=== PATIENT | female | born 1985 | race Two or more races ===

== ENCOUNTER 2019-07-27 19:04 | Emergency (ER) | payer SELFPAY ==
[~2019-07-27] VITALS: Ht 149.9 cm; Wt 72.6 kg
[2019-07-27 19:16] VITALS: BP 153/86
[2019-07-27] MEDS ORDERED: ACETAMINOPHEN 500 MG TAB PO ONE (20:30)
[2019-07-27] MEDS ORDERED: IBUPROFEN 800 MG TAB PO ONE (20:30)
== END 2019-07-27 20:51 | disposition home or self-care (01) ==
LOC: ER 19:08
DX: S63.501A Unspecified sprain of right wrist, initial encounter (principal); W19.XXXA Unspecified fall, initial encounter; Y93.E8 Activity, other personal hygiene; Y99.9 Unspecified external cause status; Y92.89 Other specified places as the place of occurrence of the external cause
CPT/HCPCS: 73110

== ENCOUNTER 2023-08-05 11:02 | Observation (INO) | payer MEDICAID ==
[~2023-08-05] VITALS: Ht 149.9 cm; Wt 74.4 kg
[2023-08-05 11:44] LABS: Basophils # (auto) 0 10 ^3/uL (0-0.2); Basophils % (auto) 0.3 % (0.0-2.0); Eosinophils # (auto) 0.1 10 ^3/uL (0-0.8); Hemoglobin 10.6 g/dL (12.2-16.2); Lymphocytes # (auto) 2.4 10 ^3/uL (0.4-5.4); Monocytes # (auto) 0.6 10 ^3/uL (0-1.3); Red Cell Distribution Width 17.2 % (11.8-14.3)
[2023-08-05 11:46] LABS: Eosinophils % (auto) 0.6 % (0.0-7.0); Hematocrit 33.3 % (36.0-46.0); Lymphocytes % (auto) 20.6 % (10.0-50.0); Mean Corpuscular Hemoglobin 24.7 pg (28.0-32.0); Mean Corpuscular Volume 77.4 fL (80.0-100.0); Monocytes % (auto) 5.1 % (0.0-12.0); Neutrophils # (auto) 8.4 10 ^3/uL (1.6-8.6); Neutrophils % (auto) 73.4 % (37.0-80.0); Nucleated Red Blood Cells % 0.1 %; White Blood Cell 11.5 10^3/uL (4.4-10.8)
[2023-08-05 12:00] LABS: INR 0.92 (0.9-1.15); Partial Thromboplastin Time 27.1 SEC (24.5-34.5); Prothrombin Time 9.7 sec (9.3-11.8)
[2023-08-05 12:05] LABS: Albumin 3.8 g/dL (3.2-4.8); Alkaline Phosphatase 108 U/L (46-116); Anion Gap 10 (5-15); Aspartate Aminotransferase < 8 U/L (13-40); Bilirubin, Total 0.3 mg/dL (0.2-1.0); Calcium 8.8 mg/dL (8.7-10.4); Carbon Dioxide 24 mmol/L (20-30); Chloride 104 mmol/L (98-107); Glucose 85 mg/dL (74-106); Potassium 3.6 mmol/L (3.5-5.1); Sodium 138 mmol/L (136-145); Total Protein 6.2 g/dL (5.7-8.2); Uric Acid 3.7 mg/dL (3.1-7.8)
[2023-08-05 12:20] LABS: Alanine Aminotransferase < 9 U/L (7-40); BUN/Creatinine Ratio 12.8 (10.0-20.0); Blood Urea Nitrogen < 5 mg/dL (9-23)
[2023-08-05 12:24] LABS: Creatinine, Urine 196.5 mg/dL (30.0-125.0); Urine Protein/Creatinine Ratio 0.17
== END 2023-08-05 13:05 | disposition home or self-care (01) ==
LOC: UNDOADMOB 11:02 → LDRP 11:02 → UNDODISOB 13:05
PROVIDERS: ADMIT Obstetrics & Gynecology; ATTEND Obstetrics & Gynecology
DX: O26.892 Other specified pregnancy related conditions, second trimester (principal); R03.0 Elevated blood-pressure reading, without diagnosis of hypertension; O26.872 Cervical shortening, second trimester; O42.912 Preterm premature rupture of membranes, unspecified as to length of time between rupture and onset of labor, second trimester; Z3A.25 25 weeks gestation of pregnancy
CPT/HCPCS: 36415; 59025; 76815; 76817; 80053; 81002; 82570; 84156; 84550; 85025; 85610; 85730; 94760; G0378

== ENCOUNTER 2023-09-30 10:39 | Observation (INO) | payer MEDICAID ==
[2023-09-30] MEDS ORDERED: PREN1TAB71 OR (11:00)
== END 2023-09-30 12:54 | disposition home or self-care (01) ==
LOC: LDRP 10:39 → UNDOADMOB 10:39 → LDRP 10:58 → UNDODISOB 12:54
PROVIDERS: ADMIT Obstetrics & Gynecology; ATTEND Obstetrics & Gynecology
DX: O24.419 Gestational diabetes mellitus in pregnancy, unspecified control (principal); O40.3XX0 Polyhydramnios, third trimester, not applicable or unspecified; Z98.51 Tubal ligation status; Z3A.33 33 weeks gestation of pregnancy
CPT/HCPCS: 59025; 76818; 81002; 82962; G0378

== ENCOUNTER 2023-10-03 13:03 | Observation (INO) | payer MEDICAID ==
[~2023-10-03 13:03] MED LIST: PREN1TAB71 OR
== END 2023-10-03 14:30 | disposition home or self-care (01) ==
LOC: LDRP 13:03
PROVIDERS: ADMIT Obstetrics & Gynecology; ATTEND Obstetrics & Gynecology
DX: O24.419 Gestational diabetes mellitus in pregnancy, unspecified control (principal); O40.3XX0 Polyhydramnios, third trimester, not applicable or unspecified; Z3A.34 34 weeks gestation of pregnancy
CPT/HCPCS: 59025; 76818; 81002; 82948; 94760; G0378

== ENCOUNTER 2023-10-08 13:08 | Observation (INO) | payer MEDICAID ==
[~2023-10-08] VITALS: Ht 149.9 cm; Wt 70.8 kg
== END 2023-10-08 14:19 | disposition home or self-care (01) ==
LOC: LDRP 13:08 → UNDOADMOB 13:08 → LDRP 13:15
PROVIDERS: ADMIT Obstetrics & Gynecology; ATTEND Obstetrics & Gynecology
DX: O24.419 Gestational diabetes mellitus in pregnancy, unspecified control (principal); O40.3XX0 Polyhydramnios, third trimester, not applicable or unspecified; Z3A.35 35 weeks gestation of pregnancy; Z98.51 Tubal ligation status
CPT/HCPCS: 59025; 76818; 81002; 82948; 82962; 94760; G0378

== ENCOUNTER 2023-10-11 13:12 | Observation (INO) | payer MEDICAID | END 2023-10-15 13:43 | disposition home or self-care (01) | LOC: LDRP 10-15 12:05 → UNDOADMOB 10-15 12:05 → LDRP 10-15 12:15 → UNDODISOB 10-15 13:43 | PROVIDERS: ADMIT Obstetrics & Gynecology; ATTEND Obstetrics & Gynecology | DX: O24.419 Gestational diabetes mellitus in pregnancy, unspecified control (principal); O26.893 Other specified pregnancy related conditions, third trimester; R10.30 Lower abdominal pain, unspecified; Z98.51 Tubal ligation status; Z3A.36 36 weeks gestation of pregnancy | CPT/HCPCS: 59025; 76818; 81002; 82948; 82962; G0378 ==

== ENCOUNTER 2023-10-17 10:00 | Observation (INO) | payer MEDICAID ==
[~2023-10-17] VITALS: Ht 149.9 cm; Wt 74.8 kg
[2023-10-17 11:04] LABS: Protein, Urine 76.2 mg/dL (0.0-11.9)
[2023-10-17 11:07] LABS: Creatinine, Urine 226.16 mg/dL (30.0-125.0); Urine Protein/Creatinine Ratio 0.34
[2023-10-17 11:09] LABS: Basophils # (auto) 0.1 10 ^3/uL (0-0.2); Basophils % (auto) 0.5 % (0.0-2.0); Eosinophils # (auto) 0.1 10 ^3/uL (0-0.8); Hemoglobin 10.2 g/dL (12.2-16.2); Monocytes # (auto) 0.6 10 ^3/uL (0-1.3); Red Cell Distribution Width 19.4 % (11.8-14.3)
[2023-10-17 11:10] LABS: Alanine Aminotransferase 16 U/L (7-40); Alkaline Phosphatase 201 U/L (46-116); Anion Gap 9 (5-15); Aspartate Aminotransferase 18 U/L (13-40); Calcium 9.4 mg/dL (8.5-10.1); Carbon Dioxide 24 mmol/L (20-30); Chloride 103 mmol/L (98-107); Glucose 87 mg/dL (74-106); Potassium 3.9 mmol/L (3.5-5.1); Sodium 136 mmol/L (136-145)
[2023-10-17 11:11] LABS: Bilirubin, Total 0.3 mg/dL (0.2-1.0); Eosinophils % (auto) 0.8 % (0.0-7.0); Hematocrit 33.2 % (36.0-46.0); Lymphocytes # (auto) 2.2 10 ^3/uL (0.4-5.4); Lymphocytes % (auto) 20.7 % (10.0-50.0); Mean Corpuscular Hgb Conc. 30.8 g/dL (32.0-36.0); Mean Corpuscular Volume 71.5 fL (80.0-100.0); Monocytes % (auto) 5.3 % (0.0-12.0); Neutrophils # (auto) 7.7 10 ^3/uL (1.6-8.6); Neutrophils % (auto) 72.7 % (37.0-80.0); Nucleated Red Blood Cells % 0.3 %; Red Blood Cells 4.65 10^6/uL (4.0-5.20); Total Protein 6.9 g/dL (5.7-8.2); White Blood Cell 10.6 10^3/uL (4.4-10.8)
[2023-10-17 11:34] LABS: BUN/Creatinine Ratio 9.4 (10.0-20.0); Blood Urea Nitrogen < 5 mg/dL (9-23)
[2023-10-17 12:18] LABS: INR 0.9 (0.9-1.15); Partial Thromboplastin Time 27.4 SEC (24.5-34.5); Prothrombin Time 9.5 sec (9.3-11.8)
[2023-10-18 08:06] LABS: RPR Non Reactive (Non Reactive)
== END 2023-10-17 12:40 | disposition home or self-care (01) ==
LOC: UNDOADMOB 10:00 → LDRP 10:00 → UNDODISOB 12:40
PROVIDERS: ADMIT Obstetrics & Gynecology; ATTEND Obstetrics & Gynecology
DX: O24.419 Gestational diabetes mellitus in pregnancy, unspecified control (principal); O13.3 Gestational [pregnancy-induced] hypertension without significant proteinuria, third trimester; O62.9 Abnormality of forces of labor, unspecified; Z3A.36 36 weeks gestation of pregnancy
CPT/HCPCS: 36415; 59025; 76805; 76818; 80053; 81002; 82570; 82948; 82962; 83036; 84156; 84550; 85025; 85610; 85730; 86592; G0378

== ENCOUNTER 2023-10-20 09:12 | Observation (INO) | payer MEDICAID ==
[~2023-10-20] VITALS: Ht 149.9 cm; Wt 74.8 kg
[2023-10-20 11:00] LABS: Protein, Urine 6.9 mg/dL (0.0-11.9)
[2023-10-20 11:02] LABS: 24 Hr. Total Protein, Urine 231.1 mg/24 Hr (<149.1)
[2023-10-20 11:03] LABS: Creatinine, Urine 28.97 mg/dL (30.0-125.0)
[2023-10-20 11:04] LABS: Urine Total Volume, 24 Hours 3350 mL
[2023-10-20 11:08] LABS: Protein, Urine 18.4 mg/dL (0.0-11.9)
[2023-10-20 11:11] LABS: Creatinine, Urine 45.87 mg/dL (30.0-125.0); Urine Protein/Creatinine Ratio 0.4
== END 2023-10-20 11:25 | disposition home or self-care (01) ==
LOC: LDRP 09:12
PROVIDERS: ADMIT Obstetrics & Gynecology; ATTEND Obstetrics & Gynecology
DX: O13.3 Gestational [pregnancy-induced] hypertension without significant proteinuria, third trimester (principal); O24.419 Gestational diabetes mellitus in pregnancy, unspecified control; O62.9 Abnormality of forces of labor, unspecified; Z98.51 Tubal ligation status; Z79.899 Other long term (current) drug therapy; Z3A.36 36 weeks gestation of pregnancy
CPT/HCPCS: 59025; 81002; 82570; 82575; 82948; 82962; 84156; 94760; G0378

== ENCOUNTER 2023-10-22 12:45 | Inpatient (IN) | payer MEDICAID ==
[~2023-10-22] VITALS: Ht 149.9 cm; Wt 74.8 kg
[2023-10-22 13:20] LABS: Urine Bacteria FEW /hpf (None Seen); Urine Blood Negative /uL (Negative); Urine Clarity Clear (Clear); Urine Color Straw (Yellow); Urine Protein, UAD TRACE (Negative); Urine Specific Gravity 1.007 (1.001-1.035); Urine Sperm PRESENT /hpf (None Seen); Urine Urobilinogen Normal (Negative); Urine WBC 4 /hpf (0 - 5); Urine pH 5.5 (5.0-8.0)
[2023-10-22 13:25] LABS: Protein, Urine 24.2 mg/dL (0.0-11.9)
[2023-10-22 13:28] LABS: Creatinine, Urine 44.5 mg/dL (30.0-125.0); Urine Protein/Creatinine Ratio 0.54
[2023-10-22 13:38] LABS: Eosinophils # (auto) 0 10 ^3/uL (0-0.8); Eosinophils % (auto) 0.4 % (0.0-7.0); Mean Corpuscular Volume 70.7 fL (80.0-100.0); Monocytes # (auto) 0.5 10 ^3/uL (0-1.3)
[2023-10-22 13:39] LABS: Basophils # (auto) 0.1 10 ^3/uL (0-0.2); Basophils % (auto) 0.7 % (0.0-2.0); Hematocrit 31.9 % (36.0-46.0); Hemoglobin 9.8 g/dL (12.2-16.2); Lymphocytes # (auto) 1.7 10 ^3/uL (0.4-5.4); Lymphocytes % (auto) 16.9 % (10.0-50.0); Mean Corpuscular Hemoglobin 21.7 pg (28.0-32.0); Mean Corpuscular Hgb Conc. 30.7 g/dL (32.0-36.0); Neutrophils # (auto) 7.6 10 ^3/uL (1.6-8.6); Nucleated Red Blood Cells % 0.3 %; Red Blood Cells 4.52 10^6/uL (4.0-5.20); Red Cell Distribution Width 19.5 % (11.8-14.3); White Blood Cell 9.9 10^3/uL (4.4-10.8)
[2023-10-22 13:58] LABS: Alanine Aminotransferase 24 U/L (7-40); Alkaline Phosphatase 195 U/L (46-116); Anion Gap 13 (5-15); Aspartate Aminotransferase 21 U/L (13-40); BUN/Creatinine Ratio 16.7 (10.0-20.0); Bilirubin, Total 0.3 mg/dL (0.2-1.0); Blood Urea Nitrogen 7 mg/dL (9-23); Calcium 8.8 mg/dL (8.7-10.4); Carbon Dioxide 20 mmol/L (20-30); Chloride 101 mmol/L (98-107); Glucose 74 mg/dL (74-106); Potassium 3.6 mmol/L (3.5-5.1); Sodium 134 mmol/L (136-145); Total Protein 6.6 g/dL (5.7-8.2); Uric Acid 8.2 mg/dL (3.1-7.8)
[2023-10-22 14:19] LABS: Platelet Estimate Adequate
[2023-10-22 14:21] LABS: Hypochromia Moderate
== END 2023-10-22 16:34 | disposition short-term general hospital (02) | DRG 566 ==
LOC: LDRP 12:45 → UNDOADMOB 12:45 → LDRP 12:50 → OBSVTOIN 14:50
PROVIDERS: ADMIT Obstetrics & Gynecology; ATTEND Obstetrics & Gynecology
DX: O13.3 Gestational [pregnancy-induced] hypertension without significant proteinuria, third trimester (principal); O24.410 Gestational diabetes mellitus in pregnancy, diet controlled; Z37.0 Single live birth; Z3A.37 37 weeks gestation of pregnancy; Z91.199 Patient's noncompliance with other medical treatment and regimen due to unspecified reason
CPT/HCPCS: 36415; 59025; 76818; 80053; 81001; 81002; 82570; 82948; 82962; 84156; 84550; 85025; 94760; G0378